=== PATIENT | female | born 1985 | race Two or more races ===

== ENCOUNTER 2019-05-17 14:33 | Outpatient (CLI) | payer OTHER ==
[~2019-05-17 14:33] MED LIST: ADDERALL 10 MG10 MG
== END 2019-05-17 15:00 | disposition home or self-care (01) ==
LOC: LAB 14:33
DX: N18.3 Chronic kidney disease, stage 3 (moderate) (principal); E11.21 Type 2 diabetes mellitus with diabetic nephropathy; D63.1 Anemia in chronic kidney disease; N30.00 Acute cystitis without hematuria; E78.49 Other hyperlipidemia; E03.8 Other specified hypothyroidism